=== PATIENT | male | born 1960 | race Caucasian/White ===

== ENCOUNTER → 2022-02-18 | Outpatient (CLI) | payer MEDICARE ==
--- NOTE | 2022-02-18 13:17 | US ---
EXAMINATION TYPE: US venous doppler duplex LE RT DATE OF EXAM: 02/18/2022 12:36 PM COMPARISON: NONE CLINICAL HISTORY: M79.661 PAIN IN RIGHT LOWER LEG. SIDE PERFORMED: Right TECHNIQUE: The lower extremity deep venous system is examined utilizing real time linear array sonog ana with graded compression, doppler sonography and color-flow sonography. VESSELS IMAGED: Common Femoral Vein Deep Femoral Vein Greater Saphenous Vein * Femoral Vein Popliteal Vein Small Saphenous Vein * Proximal Calf Veins (* superficial vessels) Right Leg: Negative for DVT Grayscale, color doppler, spectral doppler imaging performed of the deep veins of the lower extremiti es. There is normal flow, compressibility, vascular waveforms. IMPRESSION: No evidence of deep vein thrombus of the right lower extremity.
== END | disposition home or self-care (01) ==
LOC: RADUSWWP 12:34
PROVIDERS: ATTEND Family Medicine
DX: M79.661 Pain in right lower leg (principal)

== ENCOUNTER → 2023-05-18 | Day surgery (SDC) | payer BC, MEDICARE ==
[2023-05-12 13:45] VITALS: BMI 38.6
[~2023-05-18] MED LIST: ALPRAZolam 0.25 MG TAB PO PRN; ALPRAZolam 0.5 MG TAB PO PRN; ASPIRIN 325 MG TAB PO STA; CLOPIDOGREL 75 MG TAB ONE; HEPARIN SODIUM 1,000 UN/ML (10ML VL) IVP ONE; HEPARIN SODIUM 1,000 UN/ML (10ML VL) ONE; IOPAMIDOL-370 100ML BTL IVP ONE; LIDOCAINE 1% INJ 10MG/ML (20 ML MDV) ONE; LIDOCAINE 1% INJ 10MG/ML (5 ML VIAL-PF) SQ ONE; MIDAZOLAM 2 MG/2 ML VIAL IVP ONE; NITROGLYCERIN SL TABS 0.4 MG TAB SUBLINGUAL PRN; RX INFO: IV CONTRAST WAS GIVEN 1 EACH MISC MISCELLANE PRN; SODIUM CHLORIDE 0.9% 1,000 ML IV SCH; SODIUM CHLORIDE 0.9% 1,000 ML in EMPTY BAG 1 BAG IV SCH; VERAPAMIL 2.5 MG/ML 2 ML AMP ONE; VERAPAMIL SYRINGE (5 MG/10 ML) INTRAARTER ONE; amLODIPine 5 MG TAB ONE; fentaNYL (PF) 50 MCG/ML 2 ML AMP ONE
[2023-05-18 08:44] LABS: Glucose,Whole Blood 148 mg/dL (70-110)
[2023-05-18 08:46] VITALS: TEMP 98.2
--- NOTE | 2023-05-18 10:15 | P.PCN ---
Date of Procedure: 05/18/23 Operative Findings: CARDIAC CATHETERIZATION PERFORMING PHYSICIAN: Bharath Ayoub MD, RPVI PROCEDURE PERFORMED: 1. Selective right and left coronary angiogram INDICATION: Abnormal myocardial perfusion imaging stress test. Please refer to the history and physical for more details COMPLICATION: None APPROACH: Right radial artery LEVEL OF SEDATION: Moderate with a sedation length of 12 minutes PROCEDURE DESCRIPTION: After obtaining an informed consent, the patient was brought to cardiac manufacturing lab technician. Local anesthesia was performed using lidocaine subcutaneously. The right radial artery was cannulated using Seldinger technique, the guidewire passed easily, following that we advanced a 5-Armenian sheath dilator assembly, the wire and dilator were removed and sheath was flushed. Following that, 2 mg of verapamil along with 5000 unit heparin were given. Selective right and left coronary angiogram using a 6-Armenian JR4 and JL 3.5 catheters. The procedure was completed there was no complication. SELECTIVE CORONARY ANGIOGRAM: The right coronary artery: Large-caliber vessel and a dominant vessel. The RCA has intermediate to be her lesion distally appeared to be in the range of 40-50%. No high-grade stenosis was identified Left main: Has mild disease only The left circumflex: Large-caliber vessel and codominant vessel. The proximal left circumflex is angiographically normal. The mid left circumflex has intermediate lesion appeared to be in the range of 40-50% as well. The circumflex in the midportion gives rise into an OM1 which has intermediate lesion by the proximal portion. T he circumflex distally bifurcates into PDA and PLV branches both appear to have mild disease on The left anterior descending artery: Large-caliber vessel. The LAD is a stented and the stent appeared to be patent. CONCLUSION: 1. Intermediate disease involving the distal RCA and intermediate disease involving the mid left circumflex and OM1 POSTPROCEDURE MANAGEMENT: Consider medical treatment Consider Doppler wire measurements if the patient remains symptomatic in spite of maximize medical treatment
[2023-05-18 10:54] VITALS: RESP 16
[2023-05-18 15:35] VITALS: BP 139/64; PULSE 68
== END ==
LOC: CATHCVL 08:06
PROVIDERS: ATTEND Internal Medicine Interventional Cardiology
DX: I25.10 Atherosclerotic heart disease of native coronary artery without angina pectoris (principal); E11.9 Type 2 diabetes mellitus without complications; E78.5 Hyperlipidemia, unspecified; I10 Essential (primary) hypertension; F17.210 Nicotine dependence, cigarettes, uncomplicated; Z79.82 Long term (current) use of aspirin; Z79.84 Long term (current) use of oral hypoglycemic drugs; Z79.899 Other long term (current) drug therapy
CPT/HCPCS: 93458; C1769; C1894; J2250; J2001; J1644; Q9967

== ENCOUNTER → 2023-10-03 | Outpatient (CLI) | payer MEDICARE ==
[2023-10-03 15:18] LABS: African American GFR (CKD) >90 (>60 ml/min/1.73 sqM); Blood Urea Nitrogen 16 mg/dL (9-20); Non-African American GFR(CKD) >90 (>60 ml/min/1.73 sqM)
--- NOTE | 2023-10-03 21:06 | CT ---
EXAMINATION TYPE: CT angio chest CT DLP: 1695 mGycm, Automated exposure control for dose reduction was used. DATE OF EXAM: 10/03/2023 7:32 PM COMPARISON: None CLINICAL INDICATION:Male, 63 years old with history of I71.20 THORACIC AORTIC ANEURYSM; Monitoring an eurysm TECHNIQUE/CONTRAST: CTA scan of the thorax is performed without and with IV Contrast, patient injected with 100 mL of Iso bull 370, MIP images are created and reviewed these are created on a separate workstation.. FINDINGS: Pulmonary Artery: There is no evidence for a filling defect within the pulmonary vasculature to sugge st acute pulmonary embolism. The pulmonary artery is of normal size. Lungs/Pleura: No evidence of focal consolidation, pleural effusion or pneumothorax. Airway: Large airways are patent. Heart: Heart is within normal limits for size. Vasculature: -Aortic root at the level of the sinuses of Valsalva measures 4.5 cm. -A sending aorta measures up to 4 cm. 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 Musculoskeletal: Mild degenerative disc disease changes are present throughout the thoracolumbar spin e. Soft Tissues: Unremarkable. Lower neck: No significant findings. Upper Abdomen: No significant findings. IMPRESSION: Mild ectasia of the ascending aorta. No other vascular and amount is identified
== END | disposition home or self-care (01) ==
LOC: RADCTMAIN 14:28
PROVIDERS: ATTEND Internal Medicine Interventional Cardiology
DX: I77.810 Thoracic aortic ectasia (principal)
CPT/HCPCS: 82565; 84520; 71275; 36415; Q9967

== ENCOUNTER → 2024-03-08 | Outpatient (CLI) | payer MEDICARE ==
--- NOTE | 2024-03-10 20:49 | MR ---
EXAMINATION TYPE: MRI right wrist without IV contrast DATE OF EXAM: 03/08/2024 COMPARISON: None HISTORY: Right wrist pain with limited movements x10 months, Fell Standard multiplanar, multisequence MRI departmental protocol Multiplanar, multisequence images of the right wrist were acquired without contrast. FINDINGS: Retracted tear of the central TFCC disc. Peripheral TFCC attachments are intact. Intact for the dorsa l radial ulnar ligaments. Meniscal homolog is satisfactory. Flexor carpi ulnaris tendon and tendon sh eath within normal limits. Scapholunate and lunotriquetral ligaments are intact. Mild second and third extensor compartment tenosynovitis where the tendons cross which can be seen wi th distal intersection syndrome. Remaining extensor tendons are intact. Flexor tendons are intact. Median nerve is within normal limits. Negative for acute fracture. Advanced osteoarthritis at the triscaphe joint with multiple subcortical cysts at the level bone marrow edema in the distal scaphoid. Mild first CMC joint osteoarthritis als o noted. No sizable joint effusion. Tiny ganglia along the volar aspects of the radial styloid and pisotriquetral recess. IMPRESSION: 1. Tear of the central TFCC disc. 2. Severe triscaphe osteoarthritis including subcortical cysts and low level bone marrow edema in the distal scaphoid. Negative for fracture. 3. Mild second and third extensor compartment tenosynovitis where the tendons cross which can be seen in the distal intersection syndrome. Please correlate. [facility], , 03/10/2024 8:47 PM
== END | disposition home or self-care (01) ==
LOC: RADMRIMAIN 15:14
PROVIDERS: ATTEND Family Medicine
DX: M19.031 Primary osteoarthritis, right wrist (principal); M65.931 Unspecified synovitis and tenosynovitis, right forearm